=== PATIENT | female | born 1940 | race Caucasian/White ===

== ENCOUNTER 2021-12-04 11:15 | Outpatient (CLI) | payer MEDICARE, BC, SELFPAY ==
--- NOTE | ~2021-12-04 | DEXA_ITS ---
Bone Density Report Name: CARLOS CARTAGENA Age: 81 Sex: Female Ethnicity: White Date of : 1940 Indication: postmenopausal; screening for osteoporosis; height loss; cancer; Referring Provider: OUMAR ONTIVEROS Study: Bone densitometry was performed. Exam Date: December 04, 2021 Accession number: [id number] Bone Density: Region BMD T-score Z-score Classification AP Spine(L1, L2, L3) 1.022 0.0 2.7 Normal Femoral Neck (Left) 0.708 -1.3 1.0 Osteopenia Total Hip (Left) 0.708 -1.9 0.1 Osteopenia Femoral Neck (Right) 0.624 -2.0 0.3 Osteopenia Total Hip (Right) 0.732 -1.7 0.3 Osteopenia Total Hip Mean 0.720 -1.8 0.2 Osteopenia World Health Organization criteria for BMD impression classify patients as: Normal (T-score at or above -1.0), Osteopenia (T-score between -1.0 and -2.5), or Osteoporosis (T-score at or below -2.5). 10-year Fracture Risk(1): Major Osteoporotic Fracture 16% Hip Fracture 4.4% Reported Risk Factors: [place] (), Neck BMD=0.624, BMI=26.4 (1) FRAX(R) Version 3.08. Fracture probability calculated for an untreated patient. Fracture probability may be lower if the patient has received treatment. Clinical Information Provided by Patient: Has the following medical conditions: Cancer Patient maximum height was 67 Menopause Age: 51 Drinks caffeinated beverages Onset of menses at age 13 Number of children 2 Impression: The patient has low bone mass, based on the Right Femoral Neck T-score. The patient has an estimated ten-year risk of hip fracture of 4.4% and an estimated ten-year risk of major fracture of 16%, based on the WHO FRAX algorithm. Discussion: BONE DENSITY IS LOW AT ONE OR MORE SKELETAL SITES. THE PATIENT'S BMD AND CLINICAL RISK FACTORS CONTRIBUTE TO THIS PATIENT'S INCREASED RISK OF FRACTURE. This patient's lowest T-score is low at one or more skeletal sites. It meets the World Health Organization's (WHO) criteria for ?low bone mass? (T-score between -1.0 and -2.5). The patient's 10-year risk of hip fracture as calculated by FRAX exceeds the threshold where pharmacological therapy is recommended by the National Osteoporosis Foundation (NOF). However, all treatment decisions require clinical judgment and consideration of individual patient factors, including patient preferences, comorbidities, previous drug use, risk factors not captured in the FRAX model (e.g., frailty, falls, vitamin D deficiency, increased bone turnover, interval significant decline in bone density) and possible under or overestimation of fracture risk by FRAX. The patient should follow a healthful lifestyle (good nutrition with adequate calcium and vitamin D, and appropriate weight-bearing exercise). Follow-Up: Consider a repeat BMD and Vertebral Fracture Assessment (VFA) exam in 2
== END 2021-12-04 11:16 | disposition home or self-care (01) ==
LOC: ANHIMG 11:16
PROVIDERS: PCP Family Medicine; Visit Provider Family Medicine
DX: Z78.0 Asymptomatic menopausal state (principal); M85.852 Other specified disorders of bone density and structure, left thigh; M85.851 Other specified disorders of bone density and structure, right thigh
CPT/HCPCS: 77080

== ENCOUNTER 2022-11-25 14:18 | Outpatient (CLI) | payer MEDICARE, BC, SELFPAY ==
[2022-11-25 15:13] LABS: Basophils Absolute Auto 0.1 K/mm3 (0.0-0.1); Basophils Percent Auto 0.6 % (0.2-1.2); Eosinophils Absolute Auto 0.2 K/mm3 (0-0.3); Eosinophils Percent Auto 2.1 % (0-4.4); Hematocrit 33.7 % (37.0-47.0); Immature Granulocyte Absolute 0.03 K/mm3 (0.00-0.031); Immature Granulocyte Percent A 0.3 % (0-0.5); Lymphocytes Absolute Auto 1.42 K/mm3 (0.9-3.2); Lymphocytes Percent Auto 14.7 % (18.3-44.2); Mean Corpuscular HGB Conc 29.7 g/dl (32-36); Mean Corpuscular Hemoglobin 27.1 pg (26-34); Mean Corpuscular Volume 91.3 fl (80-100); Mean Platelet Volume 8.6 fl (7.4-10.4); Monocytes Absolute Auto 1.3 K/mm3 (0.1-0.6); Neutrophils Absolute Auto 6.7 K/mm3 (1.3-6.7); Neutrophils Percent Auto 69.3 % (45.5-73.1); Platelet Count Result 471 k/mm3 (150-375); Red Blood Count 3.69 M/mm3 (4.2-5.4); Red Cell Distribution Width 17.3 % (11.5-14.5); White Blood Count 9.6 K/mm3 (4.5-10.0)
[2022-11-25 15:29] LABS: Alanine Aminotransferase 14 U/L (6-35); Alkaline Phosphatase 110 U/L (38-126); Anion Gap 2 mmol/L (8-16); Aspartate Amino Transferase 20 U/L (14-36); Bilirubin,Total 0.4 mg/dL (0.2-1.3); Blood Urea Nitrogen 16 mg/dL (7-17); Calcium 8.5 mg/dL (8.4-10.2); Carbon Dioxide 32 mmol/L (22-30); Chloride 103 mmol/L (98-107); Estimated Glomerular Filt Rate > 60; Glucose 89 mg/dL (65-110); Potassium 3.5 mmol/L (3.4-5.0); Sodium 137 mmol/L (137-145)
[2022-11-25 15:44] LABS: Hypochromasia 1+ (NORMAL); Ovalocytes 1+ (NORMAL); Platelet Estimate Increased (Adequate); Schistocytes None Seen (NORMAL)
[2022-11-25 15:56] LABS: Thyroid Stimulating Hormone 0.121 uIU/mL (0.465-4.680)
== END 2022-11-25 14:19 | disposition home or self-care (01) ==
LOC: ANHLAB 14:19
PROVIDERS: PCP Family Medicine; Visit Provider Family Medicine
DX: E03.9 Hypothyroidism, unspecified (principal); I10 Essential (primary) hypertension; R60.9 Edema, unspecified
CPT/HCPCS: 36415; 80053; 84443; 85025

== ENCOUNTER 2023-04-09 12:57 | Observation (INO) | payer MEDICARE, BC, SELFPAY ==
[2023-04-09] VITALS (8 sets, daily range): BP systolic 93–123; BP diastolic 47–72; PULSE 91–110; RESP 16–18; TEMP 36.9–37.3; O2SAT 94–99; BMI 21.7
--- NOTE | ~2023-04-09 | CT_ITS ---
Non-contrast Head CT History: Altered mental status Technique: Axial non-contrast imaging of the brain was performed. Dose reduction technique was used on this scan by utilizing automated exposure control and iterative reconstruction technique. The dose -length product (DLP) was 605.33 mGy-cm. Findings: There is no evidence of intracranial hemorrhage, mass lesion, or acute infarct. Brain par enchyma appears normal. The ventricles and subarachnoid spaces are normal in size. The calvarium ap pears normal. The visualized paranasal sinuses and mastoid air cells are clear. Impression: No significant abnormality seen. Reviewed, dictated and finalized at location . Impression: No significant abnormality seen.
--- NOTE | ~2023-04-09 | XR_ITS ---
Clinical Indication: Weakness AP and lateral views of the chest: Comparison: 12/17/2011 Findings: The lungs are clear, without evidence of focal consolidation or pleural effusion. Cardiome diastinal silhouette is within normal limits. Bones and soft tissues are unremarkable. Impression: Clear lungs. Reviewed, dictated and finalized at location . Impression: Clear lungs.
--- NOTE | 2023-04-09 13:31 | ECG_ITS ---
Measurements Intervals [place] Rate: 93 P: 46 RI: 182 QRS: -12 QRSD: 87 T: 66 QT: 331 QTc: 413 Interpretive Statements SINUS RHYTHM DELAYED PRECORDIAL R/S TRANSITION NONSPECIFIC T-WAVE ABNORMALITY- HIGH LATERAL LEADS BASELINE ARTIFACT- I, II, III, AVR, AVL, AVF, V1-V3, V5-V6 BORDERLINE ECG NO PREVIOUS ECG AVAILABLE FOR COMPARISON Electronically Signed On 04-09-2023 16:04:07 CDT by Augustus Pichardo D.O.
[2023-04-09 13:43] LABS: Basophils Absolute Auto 0.1 K/mm3 (0.0-0.1); Basophils Percent Auto 0.4 % (0.2-1.2); Eosinophils Absolute Auto 0.2 K/mm3 (0-0.3); Eosinophils Percent Auto 2.1 % (0-4.4); Hematocrit 31.5 % (37.0-47.0); Hemoglobin 9.4 g/dL (12.0-15.0); Immature Granulocyte Absolute 0.08 K/mm3 (0.00-0.031); Immature Granulocyte Percent A 0.7 % (0-0.5); Lymphocytes Absolute Auto 0.48 K/mm3 (0.9-3.2); Lymphocytes Percent Auto 4.2 % (18.3-44.2); Mean Corpuscular HGB Conc 29.8 g/dl (32-36); Mean Corpuscular Hemoglobin 29.3 pg (26-34); Mean Corpuscular Volume 98.1 fl (80-100); Mean Platelet Volume 9.5 fl (7.4-10.4); Monocytes Absolute Auto 0.9 K/mm3 (0.1-0.6); Monocytes Percent Auto 7.9 % (2.6-8.5); Neutrophils Absolute Auto 9.7 K/mm3 (1.3-6.7); Neutrophils Percent Auto 84.7 % (45.5-73.1); Platelet Count Result 702 k/mm3 (150-375); Red Blood Count 3.21 M/mm3 (4.2-5.4); Red Cell Distribution Width 17.4 % (11.5-14.5); White Blood Count 11.5 K/mm3 (4.5-10.0)
[2023-04-09] MEDS: SODIUM CHLORIDE 0.9% IV 1,000 ML 999 ML IV CONT (13:47)
[2023-04-09 13:55] LABS: INR 2.6; Platelet Estimate Increased (Adequate); Prothrombin Time 29.7 Seconds (11.1-14.7)
[2023-04-09 13:56] LABS: Anisocytosis 1+ (NORMAL); Hypochromasia 1+ (NORMAL); Partial Thromboplastin Time 51.9 SECONDS (22.3-36.8); Schistocytes None Seen (NORMAL)
[2023-04-09 14:00] LABS: Alanine Aminotransferase 19 U/L (6-35); Albumin Level 2.6 g/dL (3.5-5.1); Alkaline Phosphatase 97 U/L (38-126); Anion Gap 8 mmol/L (8-16); Aspartate Amino Transferase 37 U/L (14-36); Bilirubin,Total 0.3 mg/dL (0.2-1.3); Blood Urea Nitrogen 27 mg/dL (7-17); Calcium 8.8 mg/dL (8.4-10.2); Carbon Dioxide 28 mmol/L (22-30); Chloride 103 mmol/L (98-107); Estimated CRCL calculation 53 ml/min; Estimated Glomerular Filt Rate > 60; Glucose 124 mg/dL (65-110); Potassium 4.2 mmol/L (3.4-5.0); Sodium 139 mmol/L (137-145)
[2023-04-09 14:18] LABS: Troponin I 0.236 ng/mL (0.000-0.034)
[2023-04-09 14:45] LABS: Appearance Urine Clear (Clear); Bilirubin Urine Negative (Negative); Blood Urine Negative (Negative); Color Urine Yellow (Yellow); Glucose Urine UA Negative (Negative); Ketones Urine Negative (Negative); Leukocyte Esterase Ur Negative LEU/UL (Negative); Nitrate Urine Negative (Negative); Protein Urine Negative (Negative); Urobilinogen Urine 0.2 mg/dL (<2.0); pH Urine 5.5 (5.0-9.0)
[2023-04-09 15:01] LABS: Add Urine Microscopic? NO
--- NOTE | 2023-04-09 15:46 | PC.NURSE ---
this nurse spoke with Ami ISSA from hospice [facility] r/t pt to be admitted on hospice care tomorrow morning not today. Hospice will deliver all the necessary equipment to the pt home today.
--- NOTE | 2023-04-09 16:44 | ED.AMS ---
HPI - Altered Mental Status General Chief Complaint: Altered Mental Status Stated Complaint: AMS Time Seen by Provider: 04/09/23 13:02 History of Present Illness HPI narrative: Patient is an 82-year-old female with history of colon cancer who presents to the ER with new confusion. Family concerned patient may have a UTI as this is happened to her previously. Patient is set up to go onto hospice hearing 2 days due to her decline from her colon cancer. Patient has no reports of pain at this time. She is resting comfortably in bed holding a stuffed animal. No history of trauma. Related Data Home Medications Medication Instructions Recorded Confirmed gabapentin 100 mg capsule 100 mg PO TID 06/08/21 04/06/23 Allergies Allergy/AdvReac Type Severity Reaction Status Date / Time No Known Allergies Allergy Verified 04/09/23 13:15 Review of Systems Review of Systems: ROS unobtainable: Yes unobtainable due to mental status PMFSH Past Medical History Medical History Essential (primary) hypertension History of breast cancer Osteopenia Surgical History Surgical History Hx of cataract surgery Family History Family History Mother Heart disease Father Heart disease Other Breast cancer Paternal Aunt Social History Social History Smoking packs per day: 1 Smoking cigarettes per day: 20.0 Years smoked: 22 Smoking pack-years: 22.00 Smoking status: Former smoker Tobacco type: cigarettes Second hand tobacco smoke exposure: Yes Smoking end date: 08/08/81 Alcohol intake: never Substance use: never Living arrangements: alone Occupation/Education: retired Gender identity (if verbalized by the patient): Female Spiritual care concerns: No Exam Narrative: GENERAL: Chronically ill-appearing, well-nourished, and in no acute distress. HEAD: Normocephalic, atraumatic. EYES: PERRL and EOMI. ENT: Mucous membranes moist. CHEST: Clear to auscultation. No respiratory distress. HEART: Regular rate and rhythm. Normal peripheral pulses. ABDOMEN: Soft, nontender, nondistended, right lower quadrant ileostomy with normal stool content. EXTREMITIES: Normal range of motion. 1+ edema. SKIN: Warm, dry, no rash. NEURO: Alert and oriented x1. PSYCH: Normal mood and affect. Course Vital Signs Vital signs: Vital Signs Temperature 98.5 F 04/09/23 13:04 Pulse Rate 102 H 04/09/23 13:04 Respiratory Rate 16 04/09/23 13:04 Blood Pressure 121/54 L 04/09/23 13:04 Pulse Oximetry 98 04/09/23 13:04 Oxygen Delivery Room Air 04/09/23 13:04 Temperature 98.5 F 04/09/23 13:04 Pulse Rate 93 04/09/23 16:50 Respiratory Rate 17 04/09/23 16:50 Blood Pressure 119/57 L 04/09/23 16:50 Pulse Oximetry 95 04/09/23 16:50 Oxygen Delivery Room Air 04/09/23 13:04 MDM - Altered Mental Status MDM Narrative Medical decision making narrative: -Presentation: 82-year-old female with history of colon cancer presenting to the ER with altered mental status. -DDX includes but is not limited to: UTI, intracranial hemorrhage, renal failure -Co-morbidities complicating care: Colon cancer -Social determinants of health: Currently at a [facility] facility. About to start hospice. -External Chart Review: Most recent PCP note. -Hx from independent Sources: Grandson who is POA. -Independent interpretation of studies: Patient with non-ST elevation MS, troponin 0.236. No renal failure or electrolyte disturbance. Mild leukocytosis 11.5. Mild anemia 9.4. -Discussion of Management/Consultants: Discussed case with [facility] hospice. They will order equipment tonight and have patient start hospice at home tomorrow. Would recommend observation admission for comfort bas
--- NOTE | 2023-04-09 18:42 | PM.IMHP ---
H&P: HPI History of Present Illness Date/Time: 04/09/23 18:42 Chief Complaint: Altered mental status, weakness, hospice Narrative: Patient is a 82-year-old female with past medical history of stage IV metastatic colon cancer status post 2 surgeries and now looking to hospice who presents to ED with worsening confusion. Family has been in contact with hospice and are in the process of setting up home hospice. Patient is having increasing confusing which family is having difficulty managing at home. They came to the hospital for some respite care while hospice is being arranged. They do not want any aggressive management. Patient's grandson has been very involved. Family notes patient can have regular diet however will need to be fed as she is very weak. In the ED, she was found to have elevated troponin however with her goals of care there is no indication to further trend troponins. Urinalysis was negative. Patient to be admitted for observation for confusion and comfort care while hospice is being arranged at home. Review of Systems Review of Systems: Limited due to mental status Constitutional: No Fever, No Chills, No Night Sweats, No Fatigue, No Malaise ENT/Mouth: No Hearing Changes, No Ear Pain, No Nasal Congestion, No Sinus Pain, No Hoarseness, No sore throat, No Rhinorrhea, No Swallowing Difficulty Eyes: No Eye Pain, No Redness, No Vision Changes Cardiovascular: No Chest Pain, No Palpitations, No Dyspnea on Exertion, No Orthopnea, No Claudication, No Edema Respiratory: No Cough, No Sputum, No Wheezing, No Shortness of Breath Gastrointestinal: No Nausea, No Vomiting, No Diarrhea, No Constipation, No Abdominal Pain, No Heartburn, No Hematochezia, No Melena Genitourinary: No Dysuria, No Urinary Frequency, No Hematuria, No Urinary Incontinence, No Urgency Musculoskeletal: No Arthralgias, No Myalgias, No Joint Swelling, No Joint Stiffness, No Back Pain Skin: No Skin Lesions, No Pruritis, No Hair Changes Neuro: No Weakness, No Numbness, No Paresthesias, No Loss of Consciousness, No Syncope, No Dizziness, No Headache Psych: No Anxiety/Panic, No Depression, No Insomnia Heme: No Bruising, No Bleeding Lymph: No Adenopathy Endocrine: No Polyuria, No Polydipsia, No Temperature Intolerance [facility] Past Medical History Medical History (Updated 04/09/23 @ 18:59 by Dahiana Cortez DO) 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 Essential (primary) hypertension History of breast cancer Osteopenia Severe protein-calorie malnutrition Surgical History Surgical History H/O hemicolectomy Hx of cataract surgery Family History Family History Mother Heart disease Father Heart disease Other Breast cancer Paternal Aunt Social History Social History Smoking packs per day: 1 Smoking cigarettes per day: 20.0 Years smoked: 22 Smoking pack-years: 22.00 Smoking status: Former smoker Tobacco type: cigarettes Second hand tobacco smoke exposure: Yes Smoking end date: 08/08/81 Alcohol intake: never Substance use: never Living arrangements: alone Occupation/Education: retired Gender identity (if verbalized by the patient): Female Spiritual care concerns: No Meds Home Medications and Allergies Home Medications Medication Instructions Recorded Confirmed Type gabapentin 100 mg capsule 100 mg PO TID 06/08/21 04/06/23 History levothyroxine 125 mcg tablet 125 mcg PO DAILY #30 tabs 12/15/22 04/06/23 Rx oxycodone 5 mg tablet 5 mg PO Q6H PRN pain #90 tabs 04/01/23 04/06/23 Rx Allergies Allergy/AdvReac Type Severity Reaction Status Date / Time No Known Allergies Allergy Verified 04/09/23 13:15 Vital Signs Vital Signs - 24 hr 04/09/23 13:04 04/09/23 13:09 04/09/23 13:33 Temperature 36.9 C Pulse Rate
[2023-04-09] MEDS: HYDROcodone/acetaminophen (*CRX) 5-325 MG TABLET 1 TAB PO (19:03)
--- NOTE | 2023-04-09 22:14 | ADMGEN ---
This patient, Chayo Navarrete, was admitted to [facility] Surg Room 305-01. Patient/family oriented to hospital policies and general routines including ID bracelet, bed and alarms, visiting hours, pain management, procedures, bathroom and other care routines, personal items, smoking policy, room service/diet, and visiting hours. Information on how to activate the Rapid Response Team has been discussed. Patient/Family are encouraged to report perceived risks to care and to ask questions if they do not understand what they are told or what they should do.
[2023-04-09] MEDS: LORazepam INJ (*CRX) 2 MG/ML VIAL IV PUSH (22:58)
[2023-04-10 05:52] VITALS: BP 109/51; PULSE 108; RESP 20; TEMP 37.3; O2SAT 92
[2023-04-10 08:00] VITALS: PULSE 108; RESP 20; O2SAT 92
--- NOTE | 2023-04-10 08:42 | PM.DS ---
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 Please see H&P for details. Hospital Course: Family is in the process of setting up hospice care for the patient. Family noted that patient had increasing confusion and concern for infectious process so patient was sent to the emergency room from the residential. Workup in the emergency room showed elevated white count to 11K, elevated platelet count to 700K, INR 2.6, and elevated troponin. UA was negative. Chest x-ray was clear. Head CT showed no significant abnormalities. Patient was admitted for observation. Given her goals of care, no further evaluation was done on the elevated troponins. Hospice was contacted and arrangements were made for patient to return home and not back to the residential. Patient was discharged home with family on 04/10/2023. Status at Discharge Cognitive/behavioral status at discharge: Stable Time Spent with Patient Time attestation: Total time spent providing and/or coordinating discharge services: 32 minutes Time spent: Greater than 30 minutes Exam Narrative: AF 109/51 108 20 Gen - NARD lying flat in bed Chest -lungs clear anteriorly CV - RRR S1/S2 Abd - Soft. Nontender. Colostomy bag in the right abdomen. Ext - No pedal edema Skin - Warm and dry DS: Data Data Completed and Pending Labs on day of discharge: Labs from last 24 hours 04/09/23 04/09/23 04/09/23 14:36 13:37 13:37 WBC RBC Hgb Hct MCV MCH MCHC RDW Plt Count MPV Immature Gran % (Auto) Neut % (Auto) Lymph % (Auto) Saline % (Auto) Eos % (Auto) Baso % (Auto) Lymph # (Auto) Saline # (Auto) Eos # (Auto) Baso # (Auto) Abs Immat Gran (auto) Absolute Neuts (auto) Absolute Nucleated RBC Nucleated RBC % Platelet Estimate Hypochromasia Anisocytosis Schistocytes PT INR APTT Sodium Potassium Chloride Carbon Dioxide Anion Gap BUN Creatinine Estim Creat Clear Calc Estimated GFR Glucose Calcium Total Bilirubin AST ALT Alkaline Phosphatase Troponin I Total Protein Cancelled Albumin Cancelled 2.6 L Urine Color Yellow Urine Appearance Clear Urine pH 5.5 Ur Specific [place] 1.010 Urine Protein Negative Urine Glucose (UA) Negative Urine Ketones Negative Ur Blood (Man) Negative Urine Nitrate Negative Urine Bilirubin Negative Urine Urobilinogen 0.2 Leukocyte Esterase Rfl Negative 04/09/23 04/09/23 04/09/23 13:37 13:37 13:37 WBC RBC Hgb Hct MCV MCH MCHC RDW Plt Count MPV Immature Gran % (Auto) Neut % (Auto) Lymph % (Auto) Saline % (Auto) Eos % (Auto) Baso % (Auto) Lymph # (Auto) Saline # (Auto) Eos # (Auto) Baso # (Auto) Abs Immat Gran (auto) Absolute Neuts (auto) Absolute Nucleated RBC Nucleated RBC % Platelet Estimate Hypochromasia Anisocytosis Schistocytes PT INR APTT Sodium Potassium Chloride Carbon Dioxide Anion Gap BUN Creatinine Estim Creat Clear Calc Estimated GFR Glucose Calcium Total Bilirubin AST Cancelled ALT Cancelled 19 Alkaline Phosphatase Cancelled 97 Troponin I 0.236 H* Total Protein 6.0 L Albumin Urine Color Urine Appearance Urine pH
[2023-04-10 09:12] VITALS: O2SAT 90
== END 2023-04-10 12:50 | disposition hospice, home (50) ==
LOC: ANHED 17:51 → ANH3MEDSUR 22:20
PROVIDERS: Admitting Provider Student in an Organized Health Care Education/Training Program; Emergency Provider Emergency Medicine; PCP Family Medicine; Visit Provider Internal Medicine
DX: C18.9 Malignant neoplasm of colon, unspecified (principal); C78.00 Secondary malignant neoplasm of unspecified lung; E43 Unspecified severe protein-calorie malnutrition; Z68.21 Body mass index [BMI] 21.0-21.9, adult; R41.0 Disorientation, unspecified; I10 Essential (primary) hypertension; R94.31 Abnormal electrocardiogram [ECG] [EKG]; M85.80 Other specified disorders of bone density and structure, unspecified site; Z90.49 Acquired absence of other specified parts of digestive tract; Z87.891 Personal history of nicotine dependence; Z79.899 Other long term (current) drug therapy; Z82.49 Family history of ischemic heart disease and other diseases of the circulatory system
CPT/HCPCS: 36415; 70450; 71046; 80053; 81003; 84484; 85025; 85610; 85730; 93005; 96361; 96374; 99285; A9270; G0378; J2060; J7030